=== PATIENT | female | born 1945 | race Caucasian/White ===

== ENCOUNTER 2016-07-20 18:08 | Inpatient (IN) | payer OTHER ==
[~2016-07-20] VITALS: Ht 160 cm; Wt 113.4 kg
--- NOTE | 2016-07-20 19:03 | NUR ---
PT C/O INCREASED WEAKNESS AND PAIN IN THE LOWER EXTREMITIES FOR THE PAST WEEK WITH AN INCREASED INABILITY TO AMBULATE. ABLE TO MOVE UPPER EXTREMITIES BILATERALLY BUT NOT AMBULATE ON LEGS AT THIS TIME. TACTILE STIMULATION ADEQUATE AND CAP REFILL LESS THAN 3 SECONDS WITH STRONG PEDAL PULSES BILATERAL LOWER EXTREMITIES. VITALS STABLE UPON ARRIVAL AND 0 S/S DISTRESS NOTED. PT IS ALERT AND ORIENTED. AWAITING MD RODAS
--- NOTE | 2016-07-20 19:09 | NUR ---
REPORT GIVEN TO SAHRA JACOBSEN
--- NOTE | 2016-07-20 19:10 | NUR ---
REPORT RECEIVED FROM Ana Luisa COOPER RN FOR CONTINUATION OF CARE.
--- NOTE | 2016-07-20 19:28 | NUR ---
PT SITTING UP IN BED IN POSITION OF COMFORT; RESP E/U WITH VISIBLE CHEST RISE, NAD NOTED. COMFORT NEEDS ADDRESSED, PT DENIES PAIN AT THIS TIME. CALL LIGHT IN REACH, BED IN LOWEST LOCKED POSITION. FAMILY AT BEDSIDE.
--- NOTE | 2016-07-20 19:44 | NUR ---
DR GRIFFIN AT BEDSIDE FOR MSE.
[2016-07-20 20:08] LABS: PLATELET COUNT 307 x10^3mcL (130-400); RED CELL DISTRIBUTION WIDTH 15.3 % (11.5-14.5)
--- NOTE | 2016-07-20 20:14 | NUR ---
PT OFF UNIT VIA [employer] FOR CT SCAN AT THIS TIME.
[2016-07-20 20:21] LABS: CARBON DIOXIDE 28.5 mmol/L (21-32); CHLORIDE SERUM 101 mmol/L (98-107); CREATININE SERUM 1.5 mg/dL (0.6-1.0); GFR1 37 mL/min; GLUCOSE SERUM 132 mg/dL (74-106); SODIUM SERUM 141 mmol/L (136-145)
[2016-07-20 20:24] LABS: MAGNESIUM 2.4 mg/dL (1.8-2.4)
[2016-07-20 20:26] LABS: ALBUMIN 3.5 g/dL (3.4-5.0); ALKALINE PHOSPHATASE 123 U/L (46-116); ALT/SGPT 19 U/L (14-59); AST/SGOT 21 U/L (15-37); BILIRUBIN TOTAL 0.3 mg/dL (0.20-1.00); CHOLESTEROL 172 mg/dL (<200); TOTAL PROTEIN, SERUM 8.5 g/dL (6.4-8.2)
--- NOTE | 2016-07-20 20:38 | NUR ---
EKG IN PROGRESS.
[2016-07-20 20:55] LABS: ATYPICAL LYMPH 2 %; BAND NEUTROPHIL 3 % (0-10); METAMYELOCTE 1 % (0-2); MONOCYTE 5 % (0-7); PLATELET MORPHOLOGY LARGE PLATELET SEEN; SEGMENTED NEUTROPHILS 68 % (37-75); rbc morphology (normal/abnorm) NORMAL (NORMAL)
--- NOTE | 2016-07-20 21:02 | NUR ---
PT SITTING UP IN BED IN POSITION OF COMFORT, WATCHING TV. RESP E/U, NAD NOTED. DENIES PAIN AT THIS TIME. BED IN LOW LOCKED POSITION WITH CALL LIGHT IN REACH. COMFORT NEEDS ADDRESSED. WILL CONT TO MONITOR.
[2016-07-20] MEDS ORDERED: PROCARDIA XL90 MG PO (21:25)
[2016-07-20] MEDS ORDERED: HYDROCHLOROTHIA50 MG PO (21:25)
[2016-07-20] MEDS ORDERED: ATENOLOL50 MG PO (21:26)
--- NOTE | 2016-07-20 21:47 | NUR ---
PT MEDICATED PER ORDER; SEE EMAR. MAG INFUSING PER ORDER.
--- NOTE | 2016-07-20 22:46 | NUR ---
DR GRIFFIN AT BEDSIDE
--- NOTE | 2016-07-20 23:06 | NUR ---
REPORT CALLED TO RAFAEL BOCANEGRA FOR CONTINUATION OF CARE.
--- NOTE | 2016-07-20 23:25 | NUR ---
RECEIVED PT FROM ED VIA [employer]. CAME IN DUE TO WEAKNESS X1 WEEK AND UNABLE TO WALK FOR 3 DAYS. AAOX4. DENIES HEADACHE/DIZZINESS. NO SOB NOTED. DENIES CHEST PAIN/PRESSURE, NSR ON THE MONITOR. DENIES ABDOMINAL DISCOMFROT. W/ BLANCHABLE REDNESS ON THE BUTTOCKS AND SCAB ON THE LEFT BUTTOCK, ANESTHETIC ASSISTANT. W/ LIMITED ROM ON BLE DUE TO WEAKNESS. NO DECREASED SENSATION NOTED ON BLE. IV SITE PATENT AND INTACT. SIDE RAILS UPX2. CALL LIGHT ON REACH. ENDORSED TO PRIMARY NURSE LOVLEE FOR CONTINUITY OF CARE
[2016-07-20 23:39] VITALS: BP 142/56
[2016-07-20 23:45] VITALS: Ht 160 cm; Wt 113.4 kg
--- NOTE | 2016-07-21 00:30 | NUR ---
PT ALERT AND VERBAL WITH CLEAR SPEECH. DENIES ANY PAIN. NO S/S OF DISTRESS OR DISCOMFORT NOTED. BREATHING EQUAL AND UNLABORED. IV TO LEFT HAND PATENT AND INTACT. IV NS INFUSING WELL AT 150 ML/HR. NO S/S OF INFECTION NOTED. NOTED DRY SCAB TO LEFT BUTTOCK WITH SOME REDNESS. DENIES ANY PAIN. ASSISTED PT ON BEDPAN AND VOIDED CONTINENT. REPOSITIONED FOR COMFORT. RESTING WITH RELAXED FACIAL FEATURES. SIDE RAILS UP. CALL LIGHT WITHIN REACH. WILL CONTINUE TO MONITOR.
[2016-07-21 00:57] LABS: CHOLESTEROL/HDL RATIO 4.1
[2016-07-21 01:00] LABS: T3 TOTAL 0.9 ng/mL
[2016-07-21 01:06] LABS: FREE T4 1.46 ng/dL (0.76-1.46); FREE THYROXINE INDEX 3.2 ug/dL (1.4-4.5)
--- NOTE | 2016-07-21 02:15 | NUR ---
PT RESTING IN BED WITH EYES CLOSED. BREATHING EQUAL AND UNLABORED. NO S/S OF DISTRESS OR DISCOMFORT NOTED. IV PATENT AND INFUSING WELL. NO S/S OF INFECTION NOTED. RESTING COMFORTABLY WITH RELAXED FACIAL FEATURES. CALL LIGHT WITHIN REACH. WILL CONTINUE TO MONITOR.
--- NOTE | 2016-07-21 05:45 | NUR ---
INFORMED PT OF RESULT HGBA1C 6.4. DIABETIC TEACHING REGARDING HGBA1C LEVEL AND BLOOD GLUCOSE MONITORING PROVIDED AND PT VERBALIZED UNDERSTANDING.
[2016-07-21 06:01] VITALS: BP 139/48
--- NOTE | 2016-07-21 06:32 | NUR ---
URINE SPECIMEN COLLECTED FOR UA, UDS, URINE C&S, AND HCG. NOTED YELLOW IN COLOR WITH FOUL ODOR. DENIES ANY BURNING SENSATION WITH URINATION. DENIES ANY PAIN OR DISCOMFORT AT THIS TIME. REPOSITIONED FOR COMFORT. CALL LIGHT WITHIN REACH. WILL CONTINUE TO MONITOR.
[2016-07-21 07:01] LABS: BASOPHIL % 0.2 % (0-2); PLATELET COUNT 254 x10^3mcL (130-400)
[2016-07-21 07:04] LABS: microscopic required? YES; urine erythrocyte NEGATIVE (NEGATIVE)
[2016-07-21 07:06] LABS: RED CELL DISTRIBUTION WIDTH 15.1 % (11.5-14.5)
--- NOTE | 2016-07-21 07:15 | NUR ---
PT SEEN IN ULTRA SOUND EXA. PT BREATHING ON RA, EVEN, UNLABORED. IV SITE PATENT, INTACT. IVF INFUSING.
[2016-07-21 07:19] LABS: CALCIUM 8.4 mg/dL (8.5-10.1); CARBON DIOXIDE 25.8 mmol/L (21-32); CREATININE SERUM 1.2 mg/dL (0.6-1.0); MAGNESIUM 2.6 mg/dL (1.8-2.4); PHOSPHOROUS 3.5 mg/dL (2.5-4.9); POTASSIUM SERUM 3.6 mmol/L (3.5-5.1)
[2016-07-21 07:30] VITALS: BP 146/81
[2016-07-21 07:35] LABS: AMPHETAMINE QUAL UR NONE DETECTED (NEG <=1000)
[2016-07-21 14:17] VITALS: BP 156/70
--- NOTE | 2016-07-21 15:12 | NUR ---
P.T. NOTES Pt CLEARED PER RN FOR PT EVAL. PATIENT CHART REVIEWED. SHE LIVES W/FAMILY AND REQUIRES ASSIST WITH ADLs AT BASELINE. SHE REPORTS SHE IS AMBU W/FWW AT HOME BUT ADMITS TO H/O MULTIPLE FALLS. Pt WAS ADMITTED TO HOSPITAL S/P BILAT LE WEAKNESS. PLEASE SEE IMAGING FINDINGS: T-SPINE CT:DIFFUSE OSTEOPENIA, L-SPINE CT: L5-S1 DDD. VENOUS US: (-)DVT S: Pt PRESENTS AWAKE, ALERT AND AGREEABLE FOR PT EVAL. NO NOTED PAIN OR DISTRESS BUT C/O THAT BLE FEEL VERY HEAVY IS SHE IS UNABLE TO MOVE THEM. Pt IS TALKATIVE. EXPRESSED MULTIPLE TIMES HER FEAR OF FALLING SHE ADMITS TO H/O MULTIPLE FALLS, ESPECIALLY RECENTLY,C/O HER LEGS JUST"GIVE OUT" ON HER. O: PLEASE SEE EVAL FOR DETAILS. Pt REQUIRES MAX A OF 2 FOR BED MOBILITY. ATTEMPTED MULTIPLE SIT<>STAND TRANSFERS W/MAX A BUT Pt UNABLE TO PERFORM. TENDS TO JUST SLIDE HIPS FWD AND UNABLE TO LIFT GLUTS OFF OF BED FOR STANDING. Pt EDU ON SAFETY, FALL PREVENTION, AND BENEFITS OF MOBILITY AND PT W/GOOD LEARNING EXPRESSED. SAFELY ASSISTED BTB WITH ALL LINES INTACT, CALL LIGHT AND TRAY IN REACH, HOB ELEVATED. DIVERSITY MANAGER AND RN IN ROOM Pt NOTED TO BE SOILED AND REQUIRED ASSIST W/PERICARE AND CLEAN UP SHE HAD A BM DURING PT AND Pt WAS UNAWARE OF THIS. ASSISTED NURSING STAFF W/Pt CARE. ENDORSED CARE TO RN POST PT EVAL. Pt COOPERATIVE W/CARE. A: Pt TOLERATED PT FAIR. HIGH FALL RISK D/T MUCH APPREHENSION W/MOBILITY INCLUDING EXPRESSED FEAR OF FALLING WELL ACTUAL H/O FALLS. DEMO'S FAIR TRUNK CONTROL W/SEATED BALANCE AND POOR CORE STABILITY. BLE GENERALIZED WEAKNESS THAT IS WORSE ON LLE. Pt WILL BENEFIT FROM PT DURING ACUTE STAY AND POST ACUTE STAY. 2PA FOR PHYSICAL ASSIST Pt IS MORBIDLY OBESE. P: POC REVIEWED W/SWITCH HOUSE OPERATOR. PLEASE SEE PATIENT ONCE DAILY, 5X/WK,1 WEEK. EVAL 38' [id number]; FUNCTIONAL REACH16 IN (1)PVE FOR ASSISTING NURSING STAFF W/Pt CLEAN UP, CHANGING.
[2016-07-21 17:05] VITALS: BP 148/70
--- NOTE | 2016-07-21 18:50 | NUR ---
PT IS EATING DINNER, NO COMPLAIN OF PAIN AT THIS TIME. PT BREATHING ON RA, EVEN, UNLABORED. BLE WEAKNESS, PT IS NOT ABLE TO STAND UP WITH PHYSICAL THERAPIST. IV SITE PATENT, INTACT. IVF INFUSING WELL.
--- NOTE | 2016-07-21 19:51 | NUR ---
PT RECIEVED AAO REG RESP NO SOB,V/S STABLE,KEPT CLEAN AND DRY TO TOUCH,PT ON TELE MONITOR AND IN NSR NO ECTOPY OR CHEST PAIN AT THIS TIME,IV IFUSING WELL WITH THE SITE PATENT AND INTACT,CALL LIGHT MADE CLOSE TO THE PATIENT AND WILL CONTINUE TO MONITOR.
[2016-07-21 21:09] VITALS: BP 138/80
--- NOTE | 2016-07-22 | NUR ---
REPORTED TO DR CALDWELL THE RESULTS OF THE BLOOD CULTURE,GRAM POSITIVE COCCI IN CLUSTER NO FEVER AT THIS TIME AND WILL CONTINUE TO MONITOR.
[2016-07-22 05:57] VITALS: BP 138/46
[2016-07-22 06:31] LABS: BASOPHIL % 0.3 % (0-2); CALCIUM 8.4 mg/dL (8.5-10.1); CARBON DIOXIDE 27.2 mmol/L (21-32); CREATININE SERUM 1.2 mg/dL (0.6-1.0); PLATELET COUNT 251 x10^3mcL (130-400); POTASSIUM SERUM 3.6 mmol/L (3.5-5.1)
--- NOTE | 2016-07-22 06:39 | NUR ---
PT HAD A RESTING NIGHT V/S STABLE,KEPT CLEAN AND DDRY TO TOUCH,WILL CONTINUE TP MONITOR
[2016-07-22 06:50] LABS: RED CELL DISTRIBUTION WIDTH 15.4 % (11.5-14.5)
--- NOTE | 2016-07-22 07:21 | NUR ---
PT SEEN AWAKE, ALERT, ORIENTED X 3. PT NO COMPLAIN OF PAIN AT THIS TIME. PT STILL REPORTED BLE WEAKNESS AND RECENTLY INCONTINENT PROBLEM. PT BREATHING ON RA, EVEN, UNLABORED. IV SITE PATENT, INTACT. IVF INFUSING WELL.
[2016-07-22 07:40] VITALS: BP 185/65
[2016-07-22 10:00] VITALS: BP 130/51
[2016-07-22 13:55] VITALS: BP 167/59
--- NOTE | 2016-07-22 15:24 | NUR ---
PT NOTES TIME 2910-6712 S: CLEARED BY RN FOR P.T. TX. PATIENT IS AWAKE & ALERT IN A SEMI BRENNAN POSITION IN BED. AGREEABLE TO P.T. TX. NO C/O PAIN OR DIZZINESS AT THIS TIME. PATIENT DOES C/O INCREASE WEAKNESS ON L LE. O: VITALS AT REST BP 157/60, HR 78 BPM, SPO2 ON RA 96% BED MOBILITY: SUPINE<>SIT VIA LOGROLL W/ MAX/MOD ASSIST OF 2. VC GIVEN W/ PROPER SEQUENCE FOR BED MOB. INSTRUCTED TO USE SIDERAILS FOR ASSISTANCE. TRANSFER: SIT<>STAND W/ FWW MAX ASSIST OF 2 X 3 ATTEMPTS. PATIENT REQUIRES VC W/ SEQUENCING ON TRANSFERS FOCUSING ON FORWARD TRUNK LEAN RATHER THAN POSTERIOR LEAN TO STAND. GAIT: 4 LATERAL STEPS W/ FWW MAX ASSIST OF 2. WT. SHIFTING ACTIVITIES IN STANDING TO INITIATE STEPS LATERALLY ALONG EOB. PATIENT APPEARS FEARFUL & REQUIRES CUES FOR RELAXATION. L KNEE TENDS TO BUCKLE. DECREASE FOOT CLEARANCE. PATIENT URINATED & REQUIRED PERINEAL CARE. VC REQUIRED FOR PROPER GAIT PATTERN. EDUCATED PATIENT ON SAFETY FOR FALL PREVENTION & HEP W/ G UNDERSTANDING. COOPERATIVE & APPRECIATIVE OF CARE. THER EX ANKLE DF/PF, QUAD SETS, KNEE FLEX/EXT, HIP FLEXION X 10 REPS W/ REST BREAKS IN BETWEEN. PATIENT IS SAFELY & COMFORTABLY IN A SEMI BRENNAN POSITION IN BED W/ CALL BUTTON & TABLE IN REACH. LEFT IN CARE OF RN. P: DISCUSSED W/ PRIMARY PHYSICAL THERAPIST GT10',TA20',TE8',2PA(2),PVE(CLEAN UP D/T PATIENT URINATED)
--- NOTE | 2016-07-22 16:00 | NUR ---
PT REFUSED XR FOR LUMBAR SPINE TO RADIO STAFF. LATER PT STATED SHE WOULD LIKE TO HAVE XR LUMBAR SPINE TOMORROW.
[2016-07-22 17:55] VITALS: BP 130/51
--- NOTE | 2016-07-22 19:02 | NUR ---
PT IS RESTING ON BED. NO COMPLAIN OF PAIN AT THIS TIME. PT BREATHING ON RA, EVEN, UNLABORED. IV SITE PATENT, INTACT. IVF INFUSING WELL.
--- NOTE | 2016-07-22 19:34 | NUR ---
PT RECIEVED AAO REG RESP NO SOB,V/S STABLE,PT HAS EVERETT LOWER EXTRE DISCOLORATION AND WITH GENERALISED WEAKNESS,IV INFUSING WELL WITH THE SITE PATENT AND INTACT,BED IN THE LOW POSITION AND LOCKED AND WILL CONTINUE TO MONITOR.PT ON TELE MONITOR AND IN NSR NO ECTOPY OR CHEST PAIN AT THIS TIME,MADE COMFORTABLE IN BED AND WILL CONTINUE TO MONITOR.
[2016-07-22 21:22] VITALS: BP 127/43
[2016-07-23 05:21] VITALS: BP 145/54
[2016-07-23 06:11] LABS: BASOPHIL % 0.5 % (0-2); PLATELET COUNT 233 x10^3mcL (130-400)
[2016-07-23 06:17] LABS: CALCIUM 8.2 mg/dL (8.5-10.1); CARBON DIOXIDE 23.6 mmol/L (21-32); CREATININE SERUM 1.2 mg/dL (0.6-1.0); POTASSIUM SERUM 3.4 mmol/L (3.5-5.1)
--- NOTE | 2016-07-23 06:34 | NUR ---
PT HAD A RESTING NIGHT V/S STABLE,NO CHANGE IN CONDITION AT THIS TIME,WILL CONTINUE TO MONITOR.
--- NOTE | 2016-07-23 07:01 | NUR ---
RECEIVED REPORT FROM [facility] NURSE JOVAN AT THIS TIME. PATIENT IS RESTING IN BED, AWAKE ALERT AND O X4. TELE # [address] ON ROOM AIR, NO DISTRESS NOTED. IV TO LEFT HAND IN PLACE. INSTRUCTED ON USE OF CALL LIGHT. WILL CONTINUE TO MONITOR.
[2016-07-23 07:05] LABS: RED CELL DISTRIBUTION WIDTH 15.5 % (11.5-14.5)
--- NOTE | 2016-07-23 08:54 | NUR ---
ROUNDS MADE AT THIS TIME. DR. BARTLETT, RESIDENT TEAM, SUPERVISOR VARNISH, AND PRIMARY RN AT THE BEDSIDE. PLAN OF CARE IS DISCUSSED. QUESTIONS AND CONCERNS ADDRESSED. WILL CONTINUE TO MONITOR.
[2016-07-23 09:15] VITALS: BP 150/63
[2016-07-23 14:00] VITALS: BP 153/69
--- NOTE | 2016-07-23 14:27 | NUR ---
PT NOTES TIME [id number] S: CLEARED BY RN FOR P.T. TX. PATIENT IS AWAKE & ALERT IN A SEMI BRENNAN POSITION IN BED. AGREEABLE TO P.T. TX. NO C/O PAIN OR DIZZINESS AT THIS TIME. O: VITALS AT REST BP 152/47, HR 70 BPM, SPO2 ON RA 97% BED MOBILITY: LOGROLLING W/ MOD ASSIST. SUPINE<>SIT VIA LOGROLL W/ MOD ASSIST OF 2. VC GIVEN W/ USE OF SIDERAILS TO ASSIST IN LOGROLLING. PATIENT GIVEN VC W/ PROPER SEQUENCE FOR BED MOBILITY. WHILE SEATED AT EOB PATIENT RETROLEANS, BUT ABLE TO CORRECT W/ VC CUES. TRANSFER: SIT<>STAND W/ FWW MAX ASSIST OF 2 X 7 ATTEMPTS. IN STANDING PATIENT REQUIRES VC TO FORWARD TRUNK LEAN RATHER THAN ATTEMPTING TO STAND WHILE POSTERIORLY LEANING. PATIENT'S BILAT KNEE BRIDGETTE IN STANDING. ADDITIONALLY IN STANDING, PATIENT DID WT. SHIFTING ACTIVITIES. VC GIVEN TO IMPROVE POSTURAL ALIGNMENT & FOR DEEP BREATHING TECHNIQUES. GAIT: STOOD ONLY W/ FWW MAX ASSIST OF 2. PATIENT UNABLE TO INITIATE STEPS AT THIS TIME. THER EX IN SITTING AROM/AAROM KNEE FLEX/EXT, HIP FLEXION X 15 REPS. IN SUPINE AAROM RESISTIVE KNEE FLEX/EXT, ANKLE DF/PF, HIP ABD/ADD, HIP FLEXION X 15 REPS. PATIENT IS SAFELY & COMFORTABLY IN A SEMI BRENNAN POSITION IN BED W/ CALL BUTTON & TABLE IN REACH. RN NOTIFIED. P: DISCUSSED W/ PRIMARY PHYSICAL THERAPIST TA30',TE23',2PA(3),PVE(PERINEAL CLEANING, CHANGE LINEN)
--- NOTE | 2016-07-23 16:30 | NUR ---
IN TO SEE PATIENT AND GIVE DUE MEDICATIONS (SEE EMAR). PATIENT RESTING IN BED, NO DISTRESS NOTED. DENIES PAIN AT THIS TIME. WILL CONTINUE TO MONITOR.
[2016-07-23 17:06] VITALS: BP 148/55
--- NOTE | 2016-07-23 17:30 | NUR ---
PATIENT RESTING IN BED EATING DINNER. NO DISTRESS NOTED. DISCUSSED PLAN OF CARE WITH PATIENT AND PENDING TRANSFER. WILL CONTINUE TO MONITOR.
--- NOTE | 2016-07-23 18:51 | NUR ---
REPORT GIVEN TO DEANDRE BOCANEGRA AT [facility] AT THIS TIME.
[2016-07-23 19:22] VITALS: BP 148/55
--- NOTE | 2016-07-23 20:35 | NUR ---
Awake and verbally responsive. No resp.distress noted. Denies pain at this time. Still waiting for the transport going to SN[facility].
--- NOTE | 2016-07-23 21:39 | NUR ---
Follow up call done to [facility] and advised that the transport will be here for another hour. Pt.aware.
[2016-07-23 22:08] VITALS: BP 119/53
[2016-07-23] MEDS ORDERED: GLU500 PO (23:12)
[2016-07-23] MEDS ORDERED: THERA TABS1 TAB PO (23:12)
--- NOTE | 2016-07-23 23:23 | NUR ---
PROVIDED D/C INSTRUCTIONS, QUESTIONS AND CONCERNS ADDRESSED. PT VERBALIZED UNDERSTANDING WITNESS PT SIGN CONSENT FOR TRANSFER. PT TO BE TRASPORTED BY [facility]. ALL BELONGINGS SENT WITH PT.
== END 2016-07-23 23:32 | DRG 91 ==
LOC: ED 18:08 → DU 22:50
PROVIDERS: Specialist; ADMIT Family Medicine
DX: G95.19 Other vascular myelopathies (principal); N17.0 Acute kidney failure with tubular necrosis; E86.0 Dehydration; E11.65 Type 2 diabetes mellitus with hyperglycemia; E11.51 Type 2 diabetes mellitus with diabetic peripheral angiopathy without gangrene; E87.6 Hypokalemia; M51.36 Other intervertebral disc degeneration, lumbar region; G89.29 Other chronic pain; D72.819 Decreased white blood cell count, unspecified; F43.9 Reaction to severe stress, unspecified; I10 Essential (primary) hypertension; M85.88 Other specified disorders of bone density and structure, other site; Q80.9 Congenital ichthyosis, unspecified; Z68.33 Body mass index [BMI] 33.0-33.9, adult
CPT/HCPCS: 80307; 82962; 83880; 84439; 97110-GP; 97116-GP; 97530-GP; G0480; J0696; J3475; J7030; Q0092

== ENCOUNTER → 2016-08-18 | Outpatient (CLI) | payer OTHER ==
[~2016-08-18] MED LIST: ATENOLOL50 MG PO; GLU500 PO; HYDROCHLOROTHIA50 MG PO; PROCARDIA XL90 MG PO; THERA TABS1 TAB PO
== END | disposition home or self-care (01) ==
LOC: MI 08-10 10:00
PROC: BR37ZZZ Magnetic Resonance Imaging (MRI) of Thoracic Spine (ICD-10-PCS; principal; 2016-08-18)
PROC: BR39ZZZ Magnetic Resonance Imaging (MRI) of Lumbar Spine (ICD-10-PCS; 2016-08-18)
DX: R53.1 Weakness (principal)

== ENCOUNTER 2017-08-25 19:00 | Inpatient (IN) | payer OTHER ==
[~2017-08-25] VITALS: Ht 160 cm; Wt 83.0 kg
[2017-08-25 21:34] LABS: BASOPHIL % 0.5 % (0-2); PLATELET COUNT 171 x10^3mcL (130-400)
[2017-08-25 21:38] LABS: RED CELL DISTRIBUTION WIDTH 15.1 % (11.5-14.5)
[2017-08-25 21:49] LABS: ALBUMIN 3.5 g/dL (3.4-5.0); BILIRUBIN TOTAL 0.3 mg/dL (0.20-1.00); CALCIUM 9.2 mg/dL (8.5-10.1); CARBON DIOXIDE 30.1 mmol/L (21-32); CREATININE SERUM 1.3 mg/dL (0.6-1.0)
[2017-08-25 21:51] LABS: TOTAL PROTEIN, SERUM 8.7 g/dL (6.4-8.2)
[2017-08-25 21:52] LABS: POTASSIUM SERUM 2.8 mmol/L (3.5-5.1)
[2017-08-25 23:31] LABS: microscopic required? YES; urine erythrocyte NEGATIVE (NEGATIVE)
[2017-08-26] MEDS ORDERED: NEU300 PO (01:27)
[2017-08-26] MEDS ORDERED: PROCARDIA XL90 MG PO (01:27)
[2017-08-26] MEDS ORDERED: OYSCO 500500 M1 PO (01:28)
[2017-08-26] MEDS ORDERED: HYDROCHLOROTHIA50 MG PO (01:28)
[2017-08-26] MEDS ORDERED: TENORMIN50 MG PO (01:29)
[2017-08-26 02:17] VITALS: BP 144/47
[2017-08-26 04:13] LABS: T3 TOTAL 0.88 ng/mL
[2017-08-26 04:32] LABS: CHOLESTEROL/HDL RATIO 4.2
[2017-08-26 04:46] LABS: FREE T4 1.24 ng/dL (0.76-1.46); FREE THYROXINE INDEX 3.8 ug/dL (1.4-4.5); T4(THYROXINE) 10.5 ug/dL (4.7-13.3)
[2017-08-26 05:04] LABS: BASOPHIL % 0.2 % (0-2); PLATELET COUNT 216 x10^3mcL (130-400)
[2017-08-26 05:08] LABS: CALCIUM 9.1 mg/dL (8.5-10.1); CARBON DIOXIDE 25.2 mmol/L (21-32); CREATININE SERUM 1.1 mg/dL (0.6-1.0); POTASSIUM SERUM 3.8 mmol/L (3.5-5.1)
[2017-08-26 05:10] LABS: RED CELL DISTRIBUTION WIDTH 15.2 % (11.5-14.5)
[2017-08-26 06:07] VITALS: BP 151/64
[2017-08-26 09:18] VITALS: BP 175/52
[2017-08-26 13:16] VITALS: BP 178/57
[2017-08-26 17:19] VITALS: BP 142/45
[2017-08-26 20:50] VITALS: BP 144/53
[2017-08-27 05:30] VITALS: BP 152/68
[2017-08-27 06:43] LABS: BASOPHIL % 0.5 % (0-2); PLATELET COUNT 256 x10^3mcL (130-400)
[2017-08-27 06:45] LABS: CALCIUM 9.1 mg/dL (8.5-10.1); CARBON DIOXIDE 28.6 mmol/L (21-32); CREATININE SERUM 1.2 mg/dL (0.6-1.0); MAGNESIUM 1.7 mg/dL (1.8-2.4); PHOSPHOROUS 3.5 mg/dL (2.5-4.9); POTASSIUM SERUM 3.9 mmol/L (3.5-5.1)
[2017-08-27 07:02] LABS: RED CELL DISTRIBUTION WIDTH 15.1 % (11.5-14.5)
[2017-08-27 10:05] VITALS: BP 160/58
[2017-08-27 14:00] VITALS: BP 149/52
[2017-08-27 16:50] VITALS: BP 155/70
[2017-08-27 20:35] VITALS: BP 153/64
[2017-08-27 20:39] VITALS: BP 139/64
[2017-08-28 05:57] VITALS: BP 170/62
[2017-08-28 08:18] VITALS: BP 154/54
[2017-08-28 09:52] VITALS: Ht 160 cm; Wt 83.0 kg
[2017-08-28 13:13] VITALS: BP 149/61
[2017-08-28 17:54] VITALS: BP 148/73
[2017-08-28 21:46] VITALS: BP 148/57
[2017-08-29 06:22] VITALS: BP 155/63
[2017-08-29 07:17] LABS: CALCIUM 9.8 mg/dL (8.5-10.1); CREATININE SERUM 1.1 mg/dL (0.6-1.0); POTASSIUM SERUM 3.8 mmol/L (3.5-5.1)
[2017-08-29 09:21] VITALS: BP 143/45
[2017-08-29 13:05] VITALS: BP 133/62
[2017-08-29 17:43] VITALS: BP 146/61
[2017-08-29 21:13] VITALS: BP 143/46
[2017-08-30 05:29] VITALS: BP 147/55
[2017-08-30 06:28] LABS: BASOPHIL % 0.5 % (0-2); PLATELET COUNT 242 x10^3mcL (130-400)
[2017-08-30 06:57] LABS: RED CELL DISTRIBUTION WIDTH 15.2 % (11.5-14.5)
[2017-08-30 09:25] VITALS: BP 165/56
[2017-08-30] MEDS ORDERED: LAC PO (13:10)
[2017-08-30 13:15] VITALS: BP 134/52
[2017-08-30 13:26] VITALS: BP 134/52
== END 2017-08-30 14:26 | DRG 73 ==
LOC: ED 19:00 → DU 08-26 01:26
PROVIDERS: Emergency Medicine; Family Medicine; Family Medicine Sports Medicine
DX: G90.8 Other disorders of autonomic nervous system (principal); N17.0 Acute kidney failure with tubular necrosis; N39.0 Urinary tract infection, site not specified; E87.6 Hypokalemia; E83.42 Hypomagnesemia; E11.65 Type 2 diabetes mellitus with hyperglycemia; E11.51 Type 2 diabetes mellitus with diabetic peripheral angiopathy without gangrene; E78.1 Pure hyperglyceridemia; D64.9 Anemia, unspecified; R32 Unspecified urinary incontinence; I10 Essential (primary) hypertension; M51.37 Other intervertebral disc degeneration, lumbosacral region; M17.12 Unilateral primary osteoarthritis, left knee; E66.9 Obesity, unspecified; Z68.31 Body mass index [BMI] 31.0-31.9, adult
CPT/HCPCS: 82962; 83880; 84439; 97110-GP; 97530-GP; A9577; J0696; J1100; J1644; J2060; J3480; J7030; Q0092

== ENCOUNTER 2018-10-29 11:24 | Inpatient (IN) | payer OTHER ==
[~2018-10-29] VITALS: Ht 162.6 cm; Wt 78.6 kg
[~2018-10-29 11:24] MED LIST changes: +LAC PO; +NEU300 PO; +OYSCO 500500 M1 PO; +TENORMIN50 MG PO
[2018-10-29 11:31] VITALS: Ht 162.6 cm; Wt 78.6 kg
--- NOTE | 2018-10-29 11:37 | NUR ---
PT WAS B/B AMBULANCE FROM HOME FOR LEFT LEG PAIN FOR YEARS. WORSENS IN AM THEN CALLED AMBULANCE TO HERE.
[2018-10-29 12:48] LABS: BASOPHIL % 0.8 % (0-2); PLATELET COUNT 236 x10^3mcL (130-400)
[2018-10-29 12:50] LABS: RED CELL DISTRIBUTION WIDTH 15.1 % (11.5-14.5)
--- NOTE | 2018-10-29 12:53 | NUR ---
PT WAS TAKEN TO RADIOLOGY FOR CT.
[2018-10-29 13:01] LABS: CALCIUM 9.7 mg/dL (8.5-10.1); CARBON DIOXIDE 25.2 mmol/L (21-32); CHLORIDE SERUM 103 mmol/L (98-107); CREATININE SERUM 1.8 mg/dL (0.6-1.0); GLUCOSE SERUM 120 mg/dL (74-106); POTASSIUM SERUM 4.4 mmol/L (3.5-5.1); SODIUM SERUM 140 mmol/L (136-145)
[2018-10-29 13:05] LABS: ALBUMIN 3.4 g/dL (3.4-5.0); ALKALINE PHOSPHATASE 106 U/L (46-116); ALT/SGPT 24 U/L (14-59); AST/SGOT 12 U/L (15-37); BILIRUBIN TOTAL 0.31 mg/dL (0.20-1.00)
[2018-10-29 13:06] LABS: TOTAL PROTEIN, SERUM 8.9 g/dL (6.4-8.2)
--- NOTE | 2018-10-29 16:00 | NUR ---
I ASSISTED PT WITH REMOVING HER ADULT DIAPERS FOR [facility] SHE GAVE ME PERMISSION TO [facility].
--- NOTE | 2018-10-29 16:26 | NUR ---
PT WAS TRIED TO URINATE BUT FAILED. I&OUT CATH PUT IN, URINE SAMPLE COLLECTED, URINE DIP DONE BY SUZIE. BOCANEGRA.
--- NOTE | 2018-10-29 18:05 | NUR ---
PT WAS ADMITED TO TELE. ROOM 205B. REPORT WAS CALLED AND GIVEN TO BARNEY BOCANEGRA.
[2018-10-29 18:09] LABS: FREE T4 1.02 ng/dL (0.76-1.46); FREE THYROXINE INDEX 2.4 ug/dL (1.4-4.5); T4(THYROXINE) 7.2 ug/dL (4.7-13.3)
[2018-10-29 18:09] LABS: AMPHETAMINE QUAL UR NONE DETECTED (See below)
[2018-10-29 18:32] VITALS: BP 128/54
[2018-10-29 18:38] LABS: T3 TOTAL 0.9 ng/mL
--- NOTE | 2018-10-29 18:45 | NUR ---
RECEIVED PT FROM ER VIA [facility] ACCOMPANIED WITH NURSE AND EMT, ALERT AND ORIENTED, DENIES HEADACHE OR DIZZINESS, BREATHING EVEN AND UNLABORED, NO SOB, LUNG SOUNDS CLEAR, ON ROOM AIR WITH NO RESP DISTRESS NOTED, MEDSURG PT, DENIES CHEST PAIN, PULSES PALPABLE, EDEMA NOTED TO BLE, GENERALIZED WEAKNESS, UNABLE TO MOVE OR WIGGLE LLE, (+) SENSATION TO LLE, ABD SOFT WITH ACTIVE BS, NO BM AT THIS TIME, INCONTINENT AT TIMES, ON AIR MATTRESS, NO OPEN PRESSURE INJURY NOTED, BLE WIOTH DRY SCALY SKIN, NO DISTRESS NOTED, WILL KEEP TO MONITOR.
[2018-10-29 19:02] LABS: MAGNESIUM 2.1 mg/dL (1.8-2.4); PHOSPHOROUS 4.1 mg/dL (2.5-4.9)
[2018-10-29 19:03] LABS: CHOLESTEROL/HDL RATIO 2.6
--- NOTE | 2018-10-29 19:06 | NUR ---
PT RECEIVED A/O X4, ABLE TO MAKE NEEDS KNOWN. MED-SURG, DENIES ANY CP/PRESSURE. PULSES PALPABLE, EDEMA TO BLE. BREATHING IS EVEN AND UNLABORED, NO RESP DISTRESS NOTED. ABD SOFT AND NONDISTENDED, DENIES N/V. VOIDS FREELY VIA BEDPAN, PT MAY HAVE EPISODES OF URINARY INCONTINENCE. GENERALIZED WEAKNESS AND WEAKNESS TO LLE. PT ADMITS TO FEELING SENSATION TO LLE, PT UNABLE TO MOVE LLE, BUT ABLE TO WIGGLE TOES VERY LITTLE. PT STATES, "THIS HAS HAPPENED TO ME ABOUT A YEAR AGO." PT ON AIR MATTRESS; USES WALKER AT BASELINE. DRY, SCALINESS NOTED TO BLE; SKIN IS WARM AND DRY, INTACT. PT DENIES HAVING ANY PAIN AT THIS TIME. SL TO LH, PATENT AND INTACT, SITE WNL. BED IN LOWEST SETTING, SIDE RAILS UP X2, BED ALARM ON, CALL LIGHT WITHIN REACH. NO ACUTE DISTRESS NOTED. WILL CONT TO MONITOR.
--- NOTE | 2018-10-29 19:07 | NUR ---
IN BED RESTING. NOT IN ANY DISTRESS. HANDOFF REPORT GIVEN TO SAHRA OLVERA.
[2018-10-29] MEDS ORDERED: ATORVASTATIN CA10 M1 PO (19:23)
[2018-10-29] MEDS ORDERED: LISINOPRIL10 MG PO (19:25)
[2018-10-29 20:43] VITALS: BP 146/46
[2018-10-29 20:53] LABS: microscopic required? NO
[2018-10-29 20:56] LABS: UA SPECIFIC GRAVITY <=1.005 (1.005-1.035); urine erythrocyte NEGATIVE (NEGATIVE)
--- NOTE | 2018-10-30 00:08 | NUR ---
PT RESTING IN BED WITH EYES CLOSED, BUT IS EASILY AROUSABLE. BREATHING IS EVEN AND UNLABORED, NO RESP DISTRESS NOTED. PT DENIES HAVING ANY PAIN AT THIS TIME. NO ACUTE DISTRESS NOTED. BED ALARM ON. CALL LIGHT WITHIN REACH. WILL CONT TO MONITOR.
--- NOTE | 2018-10-30 06:36 | NUR ---
PT SLEPT WELL THROUGHOUT THE EVENING. BREATHING IS EVEN AND UNLABORED, NO RESP DISTRESS NOTED. PT DENIES HAVING ANY PAIN AT THIS TIME. PT INCONTINENT OF URINE, PT CLEANED AND REPOSITIONED, LINENS AND GOWN CHANGED. PT STILL UNABLE TO MOVE LLE, ABLE TO FEEL SENSATION AND SLIGHTLY WIGGLE TOES. NO ACUTE CHANGES ENCOUNTERED DURING SHIFT. ALL NEEDS MET AND ANTICIPATED. SL TO LH, PATENT AND INTACT, SITE WNL. CALL LIGHT WITHIN REACH. WILL ENDORSE CARE TO AM NURSE.
[2018-10-30 06:44] LABS: CALCIUM 8.6 mg/dL (8.5-10.1); CARBON DIOXIDE 23.1 mmol/L (21-32); CHLORIDE SERUM 103 mmol/L (98-107); CREATININE SERUM 1.6 mg/dL (0.6-1.0); GLUCOSE SERUM 132 mg/dL (74-106); POTASSIUM SERUM 3.9 mmol/L (3.5-5.1); SODIUM SERUM 138 mmol/L (136-145)
[2018-10-30 06:52] LABS: BASOPHIL % 0.2 % (0-2); PLATELET COUNT 230 x10^3mcL (130-400)
--- NOTE | 2018-10-30 07:18 | NUR ---
PT IN NO ACUTE DISTRESS. CONTINUITY OF CARE ENDORSED TO BARNEY BOCANEGRA. ALL QUESTIONS AND CONCERNS ADDRESSED.
[2018-10-30 07:20] VITALS: BP 129/42
--- NOTE | 2018-10-30 07:32 | NUR ---
HANDOFF REPORT RECEIVED. PATIENT AWAKE IN BED. DENIES ANY DISCOMFORT AT THIS TIME. INSTRUCTED TO CALL RN FOR ASSIST. LEFT LEG ELEVATED OVER A PILLOW. CALL JULES WITHIN REACH. BED LOW AND LOCKED.
[2018-10-30 07:56] LABS: RED CELL DISTRIBUTION WIDTH 14.9 % (11.5-14.5)
--- NOTE | 2018-10-30 08:26 | NUR ---
K PAD TO THE LOWER BACK AND SCDs TO BLE APPLIED.
--- NOTE | 2018-10-30 11:55 | NUR ---
DENIES ANY DISCOMFORT. TURNED TO SIDES.
--- NOTE | 2018-10-30 15:52 | NUR ---
TURNED TO SIDES. DENIES ANY DISCOMFORT.
--- NOTE | 2018-10-30 16:32 | NUR ---
HANDOFF REPORT GIVEN TO SAHRA BRENNER.
[2018-10-30 16:44] VITALS: BP 152/39
--- NOTE | 2018-10-30 16:50 | NUR ---
RECEIVED PT FROM SAHRA SUÁREZ, REPORT GIVEN. PT IS AAOX4. RESP EVEN AND UNLABORED. ON DISTRESS NOTED. CALL LIGHT WITHIN REACH.
--- NOTE | 2018-10-30 17:39 | NUR ---
PT IS SITTING IN BED EATING DINNER. BLE ELEVATED. HEATING PAD REMOVED DUE TO PT STATING IT IS MAKING HER TOO HOT. PT REPOSITIONED FOR COMFORT. DUE MEDS GIVEN. RESP EVEN AND UNLABORED. NO DISTRESS NOTED. CALL LIGTH WITHIN REACH.
--- NOTE | 2018-10-30 18:45 | NUR ---
PT IS AAOX4. RESP EVEN AND UNLABORED. NO DISTRESS NOTED. DENIES PAIN. IV CATH TO LH N/S LOCKED. SITE WNL. NO S/S OF INFECTION OR INFILTRATION NOTED. AIR MATRESS IN PLACE. FALL PROTOCOL MAINTAINED. PT TURNED AND REPOSITIONED FOR COMFORT. CALL LIGHT WITHIN REACH. BED IN LOWEST POSTION. WILL ENDORE ALL CARE TO RAH RN.
--- NOTE | 2018-10-30 19:15 | NUR ---
PT RECEIVED A/O X4, ABLE TO MAKE NEEDS KNOWN. MED-SURG, DENIES ANY CP/PRESSURE. PULSES PALPABLE, EDEMA TO BLE. BREATHING IS EVEN AND UNLABORED, NO RESP DISTRESS NOTED. ABD SOFT AND NONDISTENDED, DENIES N/V. VOIDS FREELY VIA BEDPAN, BUT PT MAY HAVE EPISODES OF URINARY INCONTINENCE. GENERALIZED WEAKNESS AND WEAKNESS TO LLE. PT ADMITS TO FEELING SENSATION TO LLE, PT UNABLE TO MOVE LLE, BUT ABLE TO WIGGLE TOES VERY LITTLE AT TIMES. PT ON AIR MATTRESS; USES WALKER AT BASELINE. K-PAD AT BEDSIDE. DRY, SCALINESS NOTED TO BLE; SKIN IS WARM AND DRY, INTACT. PT DENIES HAVING ANY PAIN AT THIS TIME. SL TO LH, PATENT AND INTACT, SITE WNL. PT TURNED AND REPOSITIONED. BED IN LOWEST SETTING, SIDE RAILS UP X2, BED ALARM ON, CALL LIGHT WITHIN REACH. NO ACUTE DISTRESS NOTED. WILL CONT TO MONITOR.
[2018-10-30 20:48] VITALS: BP 137/48
[2018-10-31 05:31] VITALS: BP 132/52
--- NOTE | 2018-10-31 06:05 | NUR ---
PT SLEPT WELL THROUGHOUT THE EVENING. BREATHING IS EVEN AND UNLABORED, NO RESP DISTRESS NOTED. PT DENIES HAVING ANY PAIN AT THIS TIME. PT HAD MULTIPLE EPISODES OF URINARY INCONTINENCE. PT CLEANED AND REPOSITIONED, LINENS AND GOWN CHANGED. HYDRAGUARD AND OPTIFOAM APPLIED, COCCYX AREA IS WARM AND DRY, INTACT. PT STILL UNABLE TO MOVE LLE, ABLE TO FEEL SENSATION AND SLIGHTLY WIGGLE TOES. NO ACUTE CHANGES ENCOUNTERED DURING SHIFT. ALL NEEDS MET AND ANTICIPATED. SL TO LH, PATENT AND INTACT, SITE WNL. CALL LIGHT WITHIN REACH. WILL ENDORSE CARE TO AM NURSE.
[2018-10-31 06:54] LABS: CALCIUM 9.6 mg/dL (8.5-10.1); CARBON DIOXIDE 21.3 mmol/L (21-32); CHLORIDE SERUM 106 mmol/L (98-107); CREATININE SERUM 1.6 mg/dL (0.6-1.0); GLUCOSE SERUM 149 mg/dL (74-106); MAGNESIUM 2.1 mg/dL (1.8-2.4); PHOSPHOROUS 3.1 mg/dL (2.5-4.9); POTASSIUM SERUM 4.4 mmol/L (3.5-5.1); SODIUM SERUM 141 mmol/L (136-145)
--- NOTE | 2018-10-31 07:10 | NUR ---
RECEIVED BEDSIDE REPORT FROM [facility] NURSE AT THIS TIME. PATIENT RESTING COMFORTABLY IN BED. NO APPARENT DISTRESS OR DISCOMFORT NOTED. BREATHING EVEN AND UNLABORED. NO RESPIRATORY DISTRESS OR DISCOMFORT NOTED. PATIENT DENIES CHEST PAIN/PRESSURE AT THIS TIME. PATIENT C/O LLE WEAKNESS. PATIENT UNABLE TO ELEVATE LLE AND SLIGHTLY ABLE TO WIGGLE TOES TO LLE. IV PATENT AND INTACT. ALL QUESTIONS AND CONCERNS ADDRESSED. ALL NEEDS ATTENDED TO. WILL CONTINUE TO MONITOR
[2018-10-31 07:13] LABS: BASOPHIL % 0.1 % (0-2); PLATELET COUNT 236 x10^3mcL (130-400)
[2018-10-31 07:34] LABS: RED CELL DISTRIBUTION WIDTH 14.8 % (11.5-14.5)
[2018-10-31] MEDS ORDERED: NEU300 PO (08:30)
[2018-10-31 09:23] VITALS: BP 155/82
--- NOTE | 2018-10-31 09:59 | NUR ---
ALL MORNING MEDICATIONS ADMINISTERED. PATIENT TOLERATED WELL. NO ADVERSE EFFECTS NOTED. ALL NEEDS ATTENDED TO. WILL CONTINUE TO MONITOR
--- NOTE | 2018-10-31 13:27 | NUR ---
PATIENT SITTING UP IN BED AT THIS TIME EATING LUNCH. TOLERATING DIET WELL. NO APPARENT DISTRESS OR DISCOMFORT NOTED. ALL NEEDS ATTENDED TO. WILL CONTINUE TO MONITOR
[2018-10-31 15:24] VITALS: BP 155/82
--- NOTE | 2018-10-31 15:51 | NUR ---
GAVE REPORT TO CLARK HIGUERA AT [facility] AT THIS TIME. ALL QUESTIONS AND CONCERNS ADDRESSED. ALL NEEDS ATTENDED TO.AWAITING TRANSPORTATION AT THIS TIME
[2018-10-31 17:05] VITALS: BP 151/60
--- NOTE | 2018-10-31 17:18 | NUR ---
PATIENT STABLE TO BE TRANSFERRED TO [facility]. DISCHARGE INSTRUCTIONS GIVEN WELL EDUCATION. INSTRUCTED PATIENT ABOUT FOLLOW UP APPOINTMENT. PATIENT VERBALIZES UNDERSTANDING. IV REMOVED WITH CATH INTACT. ID BANDS REMOVED. ALL BELONGINGS WITH PATIENT. ALL QUESTIONS AND CONCERNS ADDRESSED. ALL NEEDS ATTENDED TO. TRANSPORT AT BEDSIDE. TO BE TRANSPORTED DOWN TO [facility] VIA GURNEY.
== END 2018-10-31 17:22 | DRG 551 ==
LOC: ED 11:24 → MU 17:01
PROVIDERS: Emergency Medicine; ADMIT Internal Medicine
DX: M51.26 Other intervertebral disc displacement, lumbar region (principal); N17.0 Acute kidney failure with tubular necrosis; D72.829 Elevated white blood cell count, unspecified; E86.0 Dehydration; I10 Essential (primary) hypertension; E11.9 Type 2 diabetes mellitus without complications; E78.5 Hyperlipidemia, unspecified; D64.9 Anemia, unspecified; Z68.29 Body mass index [BMI] 29.0-29.9, adult; Z88.0 Allergy status to penicillin; Z90.49 Acquired absence of other specified parts of digestive tract; Z82.49 Family history of ischemic heart disease and other diseases of the circulatory system; Z83.3 Family history of diabetes mellitus
CPT/HCPCS: 83880; 84439; G0378; J1100; J1885; Q0092